=== PATIENT | male | born 1965 | race Hispanic/Latino ===

== ENCOUNTER 2018-06-11 10:26 | Observation (INO) | payer OTHER ==
[2018-06-06 15:03] VITALS: BMI 28.2
[~2018-06-11 10:26] MED LIST: Absorbable Gelatin Sponge Size 12-7 ONE; Bacitracin Ointment 30 GM TUBE ONE; Bupivacaine 0.25%-Epinephrine 1:200,000 (30 ml) Inj ONE; Bupivacaine HCl 0.5% PF (10 ml) Inj ONE; Etomidate 20 mg/10ml Inj IV ONE; Lidocaine 1% Inj (20ml) ONE; Lidocaine 2% w Epi 1:100,000 Inj IJ ONE; Phenylephrine 10 mg/ml Inj ONE; Ropivacaine 0.5% 30ML IV ONE; Thrombin Topical 5,000 Int Units Spray Kit ONE
[2018-06-11] MEDS ORDERED: Lactated Ringer's 1,000 ML IV ONE ×3 (11:32→14:00)
[2018-06-11] MEDS ORDERED: Midazolam 2 MG/2 ML VIAL ONE (11:36)
[2018-06-11] MEDS ORDERED: Propofol 10 mg/ml Inj (20 ML) ONE (12:13)
[2018-06-11] MEDS ORDERED: Dexamethasone 4 mg/1 ml ONE (12:13)
[2018-06-11] MEDS ORDERED: Etomidate 20 mg/10ml Inj IV ONE (12:13)
[2018-06-11] MEDS ORDERED: Bupivacaine 0.25%-Epinephrine 1:200,000 (30 ml) Inj ONE (12:13)
[2018-06-11] MEDS ORDERED: Phenylephrine 10 mg/ml Inj ONE (12:13)
[2018-06-11] MEDS ORDERED: Succinylcholine Chloride 20 mg/ml Syr (5 ml) IV ONE (12:13)
[2018-06-11] MEDS ORDERED: Bupivacaine HCl 0.5% PF (10 ml) Inj ONE (12:13)
[2018-06-11] MEDS ORDERED: Rocuronium 10 mg/ml (5 ml) ONE ×3 (12:13→14:22)
[2018-06-11] MEDS ORDERED: Lidocaine 2% w Epi 1:100,000 Inj IJ ONE (12:38)
[2018-06-11] MEDS ORDERED: Neostigmine 1:1000 (1 mg/ml) Inj ONE (15:46)
[2018-06-11] MEDS ORDERED: Liquid Adhesive TOP ONE (16:16)
--- NOTE | 2018-06-11 16:41 | PCM.SURG1 ---
Surgeon's Initial Post Op Note - Surgeon's Notes Surgeon: Naomi Harvey MD Business Systems Administrator: Dre Anaya MD; Fiona Anne PA-C; Paulette Beth DPM Type of Anesthesia: General Endo, Other (Interscalene block ) Pre-Operative Diagnosis: Rt shoulder arthritis s/p previous resurfacing Operative Findings: See op report Post-Operative Diagnosis: same as pre-op dx Operation Performed: Rt shoulder removal of hardware and reverse total shoulder replacement Specimen/Specimens Removed: rt shoulder hardware, bone and soft tissue Estimated Blood Loss: EBL {In ML}: 300 Date of Surgery/Procedure: 06/11/18 Time of Surgery/Procedure: 12:00
[2018-06-11] MEDS ORDERED: HYDROmorphone 0.5 mg/0.5 ml ISec IVP PRN (16:45)
--- NOTE | 2018-06-11 16:50 | PCM.ANESB1 ---
Interscalene Block - Brachial Plexus Date of Procedure: 06/11/18 Anesthesiologist: Martin Pre-Procedure Diagnosis: Right shoulder arthritis s/p nighat arthroplasty Post-Procedure Diagnosis: Same Procedure Performed: Interscalene Block of Brachial Plexus Right - Procedure Interscalene Block of Brachial Plexus: This procedure was explained to the patient that it is for post-operative pain management. Consent was obtained after a thorough discussion with the patient regarding the benefits and possible complications of local anesthetic block of the Brachial Plexus at the Interscalene area. The patient was brought to the Operating Room and standard monitors were applied. Time out was held with the circulating nurse to confirm the correct surgery and appropriate block. After applying Oxygen by nasal cannula and administering IV Sedation, the patient's head was gently rotated away from the _right operative shoulder and the anterior scalene groove was carefully palpated. The ultrasound transducer was then applied to the skin in the transverse plane and the brachial plexus was visualized lateral to the carotid artery and in between the anterior and middle scalene muscles. After identification,the anterior lateral portion of the neck was prepped with Chloraprep and Lidocaine 1% was injected subcutaneously for topical analgesia. At this point, a # 22 gauge Stimuplex 2 inches insulated needle was inserted into the interscalene groove and directed in a caudal and midline direction. The needle was inserted lateral to the ultrasound transducer in-plane towards the brachial plexus in a [id number] direction. Needle advancement was performed carefully under direct ultrasound visualization. Nerve stimulator was used and twitched of the affected extremity including the hand brachialis muscles, biceps and the deltoid was obtained at a current of __0.4___MA. After repeated negative aspiration,__2___cc of__0.5%_bupivacaine were injected and this was followed with __18___cc of _0.5% bupivacaine and 10 cc 0.25% bupivacaine with 1:200,000 epinepinephrine. Under ultrasound guidance the local anesthetics were observed surrounding the roots of the brachial plexus. The needle was removed intact. The patient had stable vital signs, was conscious and in no apparent distress. The patient tolerated the interscalene block of the bracheal plexus well with stable vital signs and was prepared for subsequent surgery.
--- NOTE | 2018-06-11 18:00 | RAD ---
Indication: s/p rt shoulder reverse TSR Single-view right shoulder Comparison: None available Findings: The patient is status post right shoulder arthroplasty. Alignment cannot be adequately assessed in the absence of orthogonal views. Soft tissue swelling and subcutaneous emphysema compatible with recent postoperative history. Impression: Status right shoulder arthroplasty as above.
[2018-06-11] MEDS ORDERED: ceFAZolin 1 GM in Sodium Chloride 0.9% 100 ML IVPB ONE (19:00)
[2018-06-11] MEDS: Lactated Ringer's 1,000 ML IV SCH (19:53)
[2018-06-12] MEDS ORDERED: ceFAZolin 1 GM in Sodium Chloride 0.9% 100 ML IVPB ONE (02:00)
[2018-06-12 02:05] VITALS: RESP 20
[2018-06-12] MEDS: Lactated Ringer's 1,000 ML IV SCH ×2 (02:45→05:52)
[2018-06-12] MEDS: oxyCODONE 5 mg Immediate Release Tab PO PRN ×2 (03:18→12:23)
--- NOTE | 2018-06-12 03:33 | OP ---
PROCEDURE DATE: 06/11/2018 ATTENDING PHYSICIAN: Naomi Harvey MD HOGSHEAD WRECKER: Dre Anaya MD PREOPERATIVE DIAGNOSES: 1. Right shoulder arthritis. 2. Rotator cuff arthropathy. POSTOPERATIVE DIAGNOSES: 1. Right shoulder arthritis. 2. Rotator cuff arthropathy. PROCEDURES: 1. Right shoulder reverse total shoulder replacement, conversion of resurfacing. 2. A 22-modifier for previous surgery of right shoulder resurfacing. ESTIMATED BLOOD LOSS: 300 mL. ANESTHESIA TYPE: General. IMPLANTS: DePuy size 14 stem, 38-mm glenosphere, 12-mm insert. COMPLICATIONS: None. HISTORY: The patient is a 52-year-old male right-hand dominant, who had undergone a right shoulder resurfacing over ten years ago. The patient had continued pain. MRI showed irreparable rotator cuff with progression of arthritis of the glenoid and superior migration of the humeral head. The patient had failed. After failing extensive conservative management, the patient was indicated for total shoulder replacement due to rotator cuff arthropathy. I have recommended reverse total shoulder replacement. I reviewed the risks and benefits of the surgery with the patient in detail. The risks included but not limited to bleeding, infection, neurovascular damage, continued pain, stiffness and dislocation, instability, iatrogenic fracture, loosening of hardware, symptomatic hardware, need for further surgery, blood clots, unforeseen event, limb loss, and even . The patient fully comprehended the risks and benefits and opted to proceed with the surgery. DESCRIPTION OF THE PROCEDURE: On the day of surgery, the patient was admitted to preop holding area. A laterality sheet was completed confirming the patient's right shoulder to be the correct operative site. The patient's right shoulder was marked. He was brought into the operating room table. He underwent general anesthesia and the right shoulder was draped and prepped in a standard sterile fashion. First a time-out was completed confirming the patient's right shoulder to be correct operative site. The patient's preoperative range of motion includes forward flexion to 150, external rotation of 20, internal rotation of 50. Next, we marked out for previous incision using a #10 blade. The previous incision was utilized and extended distally. Skin dissection was taken down until the interval between the deltoid and pectoralis major was identified, apparently scarred in from previous surgery. Careful dissection was performed at the muscle. The liver elevated from the underlying scar tissue and the capsule. Upon identifying the interval, the retractors were placed, and using the Bovie, a subscapular sternotomy was performed. Next, the humeral head was dislocated. There was extensive osteophyte which was gently removed. Care was taken to protect the neurovascular structure. It was identified that the rotator cuff portion of infraspinatus and supraspinatus were completely torn, retracted, and irreparable. Decision was made to proceed with reverse total shoulder replacement. A proposed neck cut was made, and using osteotomes, the previous resurfacing component was removed without difficulty. Next, the canal was prepped. It was noted that size 14 reamer would provide adequate fill in the diaphysis. Next, the attention was given to the glenosphere. Using the appropriate retractor, the glenosphere was exposed and labeled and the circumferential capsule was released along with remnant was excised. A drill hole was made for the of the glenosphere baseplate using a center reamer. The glenosphere was reamed with slight inferior tilt. Care was taken to position the glenosphere on the inferior portion of the glenoid. Next, it was noted that baseplate will be adequate for this patient. A central pilot steam yacht hole and drill hole was made, and XDx standard baseplate was impacted for fixation, four screws were placed and provided secure fixation. A 38-mm glenosphere was impacted and secured on to the baseplate, providing adequate coverage. Next, attention was given back to humeral head. The drill hole for the proximal humerus of baseplate was made and a size 14 stem was impacted in the humeral canal. Multiple trials were used, and it was determined that a size 12 polyethylene insert will provide adequate range of motion and stability. The trial implants were removed and a size 14 humeral stem with a 9 mm body was secured on to the proximal humerus. Afterwards, it was noted that there is a size 6 polyethylene insert to provide adequate stability and polyethylene insert was impacted and secured on to the humeral stem. The joint was taken to the range of motion. The patient had adequate range of motion without any evidence of instability. The wound was copiously irrigated and closed in a standard fashion. A sterile dressing was applied. The patient was extubated, transferred to stretcher and taken to the recovery room. There were no complications of surgery. A 22-modifier for previous surgery of the patient. Surgical length was prolonged by over double the usual time due to previous surgery of right humeral resurfacing. Dr. Dre Anaya is a board certified orthopedic surgeon who was present for the entirety of the case as his participation was crucial in the patient 's positioning, retraction of critical neurovascular structures, proper positioning of the implants, and successful completion of the surgery. Naomi Harvey MD
[2018-06-12 06:41] LABS: BASO % 0.2 % (0.0-2.0); HEMOGLOBIN 10.6 g/dL (12.0-18.0); LYMPH % 12.6 % (20.0-40.0); MEAN CELL VOLUME 91.1 fl (80.0-94.0); MEAN CORPUSCULAR HEMOGLOBIN 30.7 pg (27.0-31.0); MEAN CORPUSCULAR HGB CONC 33.7 g/dL (33.0-37.0); MEAN PLATELET VOLUME 8.3 fl (7.2-11.7); MONO # 0.9 K/uL (0.0-0.8); MONO % 11.5 % (0.0-10.0); NEUT # 6.3 K/uL (1.8-7.0); NEUT % 75.7 % (50.0-75.0); RBC 3.45 Mil/uL (4.40-5.90); RED CELL DISTRIBUTION WIDTH 14.4 % (11.5-14.5); WHITE BLOOD COUNT 8.3 K/uL (4.8-10.8)
[2018-06-12 06:54] LABS: BLOOD UREA NITROGEN 17 mg/dl (9-20); CALCIUM 8.3 mg/dL (8.4-10.2); GFR NON-AFRICAN AMERICAN > 60
[2018-06-12 08:17] VITALS: BP 106/65; TEMP 99.5
[2018-06-12 11:51] VITALS: PULSE 85; O2SAT 92
== END 2018-06-12 14:07 | disposition home or self-care (01) ==
LOC: H.OPSURG 10:26 → INTOOBSV 16:22 → H.MEDSURG1 16:22
PROVIDERS: ADMIT Family Medicine; ATTEND Family Medicine
DX: M19.011 Primary osteoarthritis, right shoulder (principal); S43.001A Unspecified subluxation of right shoulder joint, initial encounter; E78.5 Hyperlipidemia, unspecified; F41.9 Anxiety disorder, unspecified
CPT/HCPCS: 23472; 36415; 73030; 80048; 85025; 86850; 86900; 86920; 88304; 96365; 97161; 97530; G0378; G8978; G8979; J0690; J1100; J2001; J2250; J2370; J2405; J2710; J2765; J3010; J7120